=== PATIENT | female | born 1980 | race Hispanic/Latino ===

== ENCOUNTER 2020-06-14 10:00 | Emergency (ER) | payer OTHER ==
[2020-06-14] MEDS ORDERED: MORPHINE 4 MG/ML SYR ONE (10:34)
[2020-06-14] MEDS ORDERED: ONDANSETRON 4 MG/2 ML VIAL ONE (10:34)
[2020-06-14] MEDS ORDERED: NA CHLORIDE 0.9% 1,000 ML ONE (10:35)
[2020-06-14 10:46] LABS: Urine Blood TRACE (NEG); Urine Glucose NEGATIVE (NEG); Urine Protein NEGATIVE (NEG); Urine pH 7.5 (5.0-7.0)
[2020-06-14 10:55] LABS: Absolute Lymphocytes (CBC) 2.3 K/uL (0.7-4.9); Basophils % 0.5 % (0-1.3); Hematocrit 38.5 % (36.0-45.0); Lymphocytes % 31.2 % (15.3-44.8); MPV 8.2 fL (7.6-11.3); RBC Red Blood Cell Count 4.21 M/uL (3.86-4.86)
[2020-06-14 10:58] LABS: Urine Bacteria 20-50 /HPF (<20); Urine Culture Reflex Order REFLEXED; Urine RBC <5 /HPF (NONE SEEN); Urine Urothelial Cells <5 /HPF (NONE SEEN)
[2020-06-14 11:08] LABS: ALT/SGPT 21 U/L (12-78); AST/SGOT 11 U/L (15-37); Albumin 4.1 g/dL (3.4-5.0); Alkaline Phosphatase 72 U/L (45-117); BUN Blood Urea Nitrogen 13 mg/dL (7-18); Bicarbonate 23 mmol/L (21-32); Bilirubin Direct 0.1 mg/dL (0-0.2); Bilirubin Total 0.5 mg/dL (0.2-1.0); Glucose Level 98 mg/dL (74-106); Lipase 100 U/L (73-393); Potassium 4.2 mmol/L (3.5-5.1); Sodium Level 137 mmol/L (136-145)
--- NOTE | 2020-06-14 12:06 | RAD REPORT ---
EXAM DESCRIPTION: CT - Abdomen Pelvis Wo Contrast - 06/14/2020 11:57 am CLINICAL HISTORY: ABD PAIN Patient describes lower back pain radiating to the left flank and groin COMPARISON: No comparisons TECHNIQUE: Axial [address] imaging of the abdomen and pelvis was performed without IV contrast. No IV contrast was given because of allergy, abnormal renal function, patient refusal or physician re quest. No oral contrast. All CT scans are performed using dose optimization technique as appropriate and may include automated exposure control or mA/KV adjustment according to patient size. FINDINGS: No suspicious findings in the lung bases. The liver, spleen and pancreas show no suspicious findings on non-contrast imaging. Gallbladder and b iliary tree are also without suspicious finding. No hydronephrosis or suspicious renal mass. No obstructing or nonobstructing calculi identifiable. No significant adrenal finding. Isodense renal masses and pyelonephritis cannot be excluded in the abse nce of IV contrast. The urinary bladder is without significant finding. Normal size uterus seen. IUD is in place appearing well positioned. No ovarian abnormality seen. Gastric surgical changes are present. No wall thickening or edema. No small bowel acute finding. Princess ent has a few small nonspecific mesenteric lymph nodes. No appendicitis. No acute colon finding ident ifiable. No free air, free fluid or inflammatory stranding. No hernia, mass or bulky lymphadenopathy. No suspicious bony findings. IMPRESSION: No hydronephrosis, obstructing calculus or acute finding identifiable. No acute GI or COMPUTER INSTRUCTOR finding. Overall no acute or emergent process. Isodense masses and pyelonephritis are not excluded on noncontrast imaging. Full assessment is limited is the absence of IV contrast.
--- NOTE | 2020-06-14 12:13 | ER ---
Nurse's Notes [facility] Name: Melanie Pacheco Age: 39 yrs Sex: Female : 1980 Arrival Date: 06/14/2020 Time: 10:03 Bed 6 Private MD: Diagnosis: Urinary tract infection, site not specified;Abdominal and pelvic pain Presentation: 06/14 10:10 Chief complaint: Left low back pain that radiates to left flank and groin since this morning. Coronavirus screen: At this time, the client does not indicate any symptoms associated with coronavirus-19. Ebola Screen: No symptoms or risks identified at this time. Initial Sepsis Screen: Does the patient meet any 2 criteria? No. Patient's initial sepsis screen is negative. Does the patient have a suspected source of infection? No. Patient's initial sepsis screen is negative. Risk Assessment: Do you want to hurt yourself or someone else? Patient reports no desire to harm self or others. Onset of symptoms was June 14, 2020. 10:10 Method Of Arrival: Wheelchair 10:10 Acuity: LEIF 3 hb Triage Assessment: 10:17 GI: No signs and/or symptoms were reported involving the gastrointestinal system. vg1 10:17 : Reports no burning during urination but feels pressure before she urinates. 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 - Social history:: Smoking status: Patient denies any tobacco usage or history of. Screenin:17 Abuse screen: Denies threats or abuse. Nutritional screening: No deficits noted. vg1 Tuberculosis screening: No symptoms or risk factors identified. Fall Risk Ambulatory Aid- None/Bed Rest/Nurse Assist (0 pts). Gait- Weak (10 pts.). Mental Status- Oriented to own ability (0 pts). Total Wallis Fall Scale indicates No Risk (0-24 pts). Assessment: 10:17 General: Appears uncomfortable, Behavior is calm, cooperative. Pain: Complains of pain vg1 in LUQ and radiates to suprapubic area. States pain is sharp Pain currently is 8 out of 10 on a pain scale. Neuro: Level of Consciousness is awake, alert, obeys commands, Oriented to person, place, time, situation. Cardiovascular: Patient's skin is warm and dry. Respiratory: Airway is patent Respiratory effort is even, unlabored, Respiratory pattern is regular, symmetrical. :. EENT: No signs and/or symptoms were reported regarding the EENT system. Derm: Skin is pink, warm \\T\\ dry. Musculoskeletal: Range of motion: intact in all extremities, states that left leg "feels a little weak". 11:18 Reassessment: Patient appears in no apparent distress at this time. Patient and/or vg1 family updated on plan of care and expected duration. Pain level reassessed. Patient is alert, oriented x 3, equal unlabored respirations, skin warm/dry/pink. patient states still feels the pain from LUQ to suprapubic area, "feels like pressure". Pain rated 4/10. 12:28 Reassessment: Rocephin IV given, will wait 15 mins to ensure no adverse reaction before vg1 discharge. 12:30 Reassessment: Patient appears in no apparent distress at this time. Patient and/or vg1 family updated on plan of care and expected duration. Pain level reassessed. Patient is alert, oriented x 3, equal unlabored respirations, skin warm/dry/pink. Patient states pain is better but still feels pressure. Patient states feeling better. Vital Signs: 10:10 BP 130 / 95; Pulse 78; Resp 16; Temp 97.7; Pulse Ox 100% on R/A; Weight 99.79 kg; hb Height 5 ft. 7 in. (170.18 cm); Pain 8/10; 11:20 BP 117 / 53; Pulse 65; Resp 12; Pulse Ox 100% on R/A; Pain 4/10; vg1 12:00 BP 113 / 72; Pulse 78; Resp 12; Pulse Ox 100% on R/A; vg1 12:30 BP 111 / 55; Pulse 69; Resp 12; Pulse Ox 100% on R/A; Pain 3/10; vg1 10:10 Body Mass Index 34.46 (99.79 kg, 170.18 cm) hb ED Course: 10:03 Patient arrived in ED. mr 10:07 Scott Chapman PA is PHCP. jr8 10:07 Micah Carrizales MD is Attending Physician. jr8 10:11 Triage completed. hb 10:13 Arm band placed on. hb 10:14 Sol Man, RN is Primary Nurse. vg1 10:17 Door closed. vg1 10:17 No provider procedures requiring assistance completed. vg1 10:45 Inserted saline lock: 20 gauge in right antecubital area, using aseptic technique. mt Blood collected. 10:50 Inserted saline lock: 22 gauge in left hand, using aseptic technique. Flushed left hand sv with 5 ml normal saline. 11:00 Urine Culture Sent. sv 11:17 Patient has correct armband on for positive identification. Bed in low position. Call vg1 light in reach. Pulse ox on. NIBP on. 11:[address] via wheelchair. vg1 11:58 Abdomen In Process Unspecified. EDMS 12:00 Patient moved back from NV. vg1 12:50 IV discontinued, intact, bleeding controlled, No redness/swelling at site. Pressure vg1 dressing applied. Administered Medications: 10:52 Drug: Zofran (Ondansetron) 4 mg Route: IVP; Site: left hand; sv 12:09 Follow up: Response: No adverse reaction; Nausea is decreased vg1 10:52 Drug: NS 0.9% 1000 ml Route: IV; Rate: 1000 ml; Site: left hand; sv 12:09 Follow up: Response: No adverse reaction vg1 12:50 Follow up: IV Status: Completed infusion vg1 14:10 Follow up: IV Status: Completed infusion; IV Intake: 1000ml sv 10:54 Drug: morphine 4 mg Route: IVP; Site: left hand; sv 12:09 Follow up: Response: No adverse reaction; Pain is decreased; RASS: Alert and Calm (0) vg1 12:28 Drug: Rocephin 1 grams Route: IV; Rate: calculated rate; Site: left hand; vg1 12:48 Follow up: Response: No adverse reaction vg1 14:10 Follow up: Response: No adverse reaction; IV Status: Completed infusion; IV Intake: 10mlsv Intake: 14:10 IV: 1000ml; Total: 1000ml. sv 14:10 IV: 10ml; Total: 1010ml. sv Outcome: 12:13 Discharge ordered by MD. aguillon 12:49 Discharged to home ambulatory. vg1 12:49 Condition: stable 12:49 Discharge instructions given to patient, Instructed on discharge instructions, follow up and referral plans. medication usage, Demonstrated understanding of instructions, follow-up care, medications, Prescriptions given X 3. 12:50 Patient left the ED. vg1 Signatures: Dispatcher [employer] EDLorena Concepcion RN RN prosper Duke, Lissa mr Ari, Scott, PA PA jr8 Salud Luciano RN RN Meron Simmons mt, Victoria RN RN vg1 Corrections: (The following items were deleted from the chart) 14:10 12:50 IV Status: Completed infusion vg1 sv 14:11 12:48 Response: No adverse reaction vg1 sv
--- NOTE | 2020-06-14 12:13 | EDPHYS ---
Physician Documentation [facility] Name: Melanie Pacheco Age: 39 yrs Sex: Female : 1980 Arrival Date: 06/14/2020 Time: 10:03 Bed 6 Private MD: ED Physician Micah Carrizales HPI: 06/14 10:22 This 39 yrs old Female presents to ER via Wheelchair with complaints of jr8 Abdominal Pain, Back Pain, Pelvic Pain. 10:22 The patient presents with abdominal pain in the left lower quadrant. Onset: The jr8 symptoms/episode began/occurred acutely, just prior to arrival, today. The symptoms radiate to left back. Associated signs and symptoms: none. The symptoms are described as stabbing. Modifying factors: The symptoms are alleviated by nothing, the symptoms are aggravated by nothing. Severity of pain: At its worst the pain was moderate in the emergency department the pain is unchanged. The patient has not experienced similar symptoms in the past. The patient has not recently seen a physician. 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 - Social history:: Smoking status: Patient denies any tobacco usage or history of. ROS: 10:22 Eyes: Negative for injury, pain, redness, and discharge, ENT: Negative for injury, jr8 pain, and discharge, Neck: Negative for injury, pain, and swelling, Cardiovascular: Negative for chest pain, palpitations, and edema, Respiratory: Negative for shortness of breath, cough, wheezing, and pleuritic chest pain, Back: Negative for injury and pain, MS/Extremity: Negative for injury and deformity, Skin: Negative for injury, rash, and discoloration, Neuro: Negative for headache, weakness, numbness, tingling, and seizure. 10:22 : Negative for urinary complaints, bleeding, discharge, and swelling. 10:22 Abdomen/GI: Positive for abdominal pain, Negative for nausea, vomiting, and diarrhea, constipation, abdominal cramps, abdominal distension. Exam: 10:22 Eyes: Pupils equal round and reactive to light, extra-ocular motions intact. Lids and jr8 lashes normal. Conjunctiva and sclera are non-icteric and not injected. Cornea within normal limits. Periorbital areas with no swelling, redness, or edema. ENT: Nares patent. No nasal discharge, no septal abnormalities noted. Tympanic membranes are normal and external auditory canals are clear. Oropharynx with no redness, swelling, or masses, exudates, or evidence of obstruction, uvula midline. Mucous membranes moist. Neck: Trachea midline, no thyromegaly or masses palpated, and no cervical lymphadenopathy. Supple, full range of motion without nuchal rigidity, or vertebral point tenderness. No Meningismus. Cardiovascular: Regular rate and rhythm with a normal S1 and S2. No gallops, murmurs, or rubs. Normal PMI, no JVD. No pulse deficits. Respiratory: Lungs have equal breath sounds bilaterally, clear to auscultation and percussion. No rales, rhonchi or wheezes noted. No increased work of breathing, no retractions or nasal flaring. Back: No spinal tenderness. No costovertebral tenderness. Full range of motion. Skin: Warm, dry with normal turgor. Normal color with no rashes, no lesions, and no evidence of cellulitis. MS/ Extremity: Pulses equal, no cyanosis. Neurovascular intact. Full, normal range of motion. Neuro: Awake and alert, GCS 15, oriented to person, place, time, and situation. Cranial nerves II-XII grossly intact. Motor strength 5/5 in all extremities. Sensory grossly intact. Cerebellar exam normal. Normal gait. 10:22 Abdomen/GI: Inspection: obese Bowel sounds: active, all quadrants, Palpation: soft, in all quadrants, moderate abdominal tenderness, in the left lower quadrant, mass, is not appreciated, rebound tenderness, is not appreciated, voluntary guarding, is not appreciated, involuntary guarding, is not appreciated, no appreciated organomegaly, Indicators: McBurney's point is not tender, Uribe's sign is negative, Rovsing's sign is negative, Liver: tenderness, is not appreciated. Vital Signs: 10:10 BP 130 / 95; Pulse 78; Resp 16; Temp 97.7; Pulse Ox 100% on R/A; Weight 99.79 kg; hb Height 5 ft. 7 in. (170.18 cm); Pain 8/10; 11:20 BP 117 / 53; Pulse 65; Resp 12; Pulse Ox 100% on R/A; Pain 4/10; vg1 12:00 BP 113 / 72; Pulse 78; Resp 12; Pulse Ox 100% on R/A; vg1 12:30 BP 111 / 55; Pulse 69; Resp 12; Pulse Ox 100% on R/A; Pain 3/10; vg1 10:10 Body Mass Index 34.46 (99.79 kg, 170.18 cm) hb MDM: 10:11 Patient medically screened. jr8 12:12 Data reviewed: vital signs, nurses notes, lab test result(s), radiologic studies, CT jr8 scan. Data interpreted: Pulse oximetry: on room air is 100 %. Interpretation: normal. Counseling: I had a detailed discussion with the patient and/or guardian regarding: the historical points, exam findings, and any diagnostic results supporting the discharge/admit diagnosis, lab results, radiology results, the need for outpatient follow up, a family practitioner, to return to the emergency department if symptoms worsen or persist or if there are any questions or concerns that arise at home. Response to treatment: the patient's symptoms have markedly improved after treatment. Special discussion: Based on the patient's Hx, exam, and Dx evaluation, there is no indication for emergent surgery or inpatient Tx. It is understood by the patient/guardian that if the Sx's persist or worsen they need to return immediately for re-evaluation. 06/14 10:17 Order name: Basic Metabolic Panel; Complete Time: jr8 06/14 10:18 Order name: CBC with Diff; Complete Time: jr8 06/14 10:18 Order name: Hepatic Function; Complete Time: jr8 06/14 10:18 Order name: Lipase; Complete Time: jr8 06/14 10:18 Order name: Urine Microscopic Only; Complete Time: jr8 06/14 10:40 Order name: Urine Dipstick--Ancillary (enter results); Complete Time: 10:50 bd 06/14 10:40 Order name: Urine --Ancillary (enter results); Complete Time: 10:50 bd 06/14 11:00 Order name: Urine Culture EDMT 06/14 11:57 Order name: Abdomen ; Complete Time: 12:11 EDMT 06/14 10:18 Order name: IV Saline Lock; Complete Time: 10:45 jr8 06/14 10:18 Order name: Labs collected and sent; Complete Time: 10:45 jr8 06/14 10:18 Order name: Urine Test (obtain specimen); Complete Time: 10:45 jr8 06/14 10:18 Order name: Urine Dipstick-Ancillary (obtain specimen); Complete Time: 10:45 jr8 Administered Medications: 10:52 Drug: Zofran (Ondansetron) 4 mg Route: IVP; Site: left hand; sv 12:09 Follow up: Response: No adverse reaction; Nausea is decreased vg1 10:52 Drug: NS 0.9% 1000 ml Route: IV; Rate: 1000 ml; Site: left hand; sv 12:09 Follow up: Response: No adverse reaction vg1 12:50 Follow up: IV Status: Completed infusion vg1 14:10 Follow up: IV Status: Completed infusion; IV Intake: 1000ml sv 10:54 Drug: morphine 4 mg Route: IVP; Site: left hand; sv 12:09 Follow up: Response: No adverse reaction; Pain is decreased; RASS: Alert and Calm (0) vg1 12:28 Drug: Rocephin 1 grams Route: IV; Rate: calculated rate; Site: left hand; vg1 12:48 Follow up: Response: No adverse reaction vg1 14:10 Follow up: Response: No adverse reaction; IV Status: Completed infusion; IV Intake: 10mlsv Disposition: 14:47 Co-signature as Attending Physician, Micah Carrizales MD I agree with the assessment and kdr plan of care. Disposition: 06/14/20 12:13 Discharged to Home. Impression: Urinary tract infection, site not specified, Abdominal and pelvic pain. - Condition is Stable. - Discharge Instructions: Abdominal Pain, Adult, Urinary Tract Infection, Adult. - Prescriptions for Cipro 500 mg Oral Tablet - take 1 tablet by ORAL route every 12 hours for 7 days; 14 tablet. Tylenol- Codeine #3 300-30 mg Oral Tablet - take 2 tablets by ORAL route every 6 hours As needed; 12 tablet. Zofran 4 mg Oral Tablet - take 1 tablet by ORAL route every 12 hours As needed; 20 tablet. - Medication Reconciliation Form, Thank You Letter, Antibiotic Education, Prescription Opioid Use form. - Follow up: Private Physician; When: 2 - 3 days; Reason: Recheck today's complaints, Continuance of care, Re-evaluation by your physician. - Problem is new. - Symptoms have improved. Signatures: Dispatcher [employer] [facility] Lorena Mc, RN RN sv Micah Carrizales MD MD kdr Roszak, Josh, PA PA jr8 Salud Luciano RN RN Sol Sales RN RN vg1 Corrections: (The following items were deleted from the chart) 11:57 11:38 Abdomen Pelvis W Con+CT.RAD.BRZ ordered. [facility] 12:50 12:13 06/14/2020 12:13 Discharged to Home. Impression: Urinary tract infection, site vg1 not specified; Abdominal and pelvic pain. Condition is Stable. Forms are Medication Reconciliation Form, Thank You Letter, Antibiotic Education, Prescription Opioid Use. Follow up: Private Physician; When: 2 - 3 days; Reason: Recheck today's complaints, Continuance of care, Re-evaluation by your physician. Problem is new. Symptoms have improved. jr8
[2020-06-14] MEDS ORDERED: CEFTRIAXONE/SWI 1gm 1 GM/10 ML SYR ONE (12:32)
[2020-06-14 12:57] VITALS: TEMP 97.7; O2SAT 100
[2020-06-14 13:01] VITALS: BP 111/55
== END 2020-06-14 12:50 | disposition home or self-care (01) ==
LOC: ER 10:00
DX: N39.0 Urinary tract infection, site not specified (principal)
CPT/HCPCS: 87088; 85025; 87086; 80048; 36415; 81025; 80076; 83690; 74176; J0696; J7030; J2405; 81003; 81015